=== PATIENT | male | born 1965 | race Caucasian/White ===

== ENCOUNTER 2018-01-25 20:38 | Emergency (ER) | payer BC, OTHER ==
--- OUTSIDE RECORDS SUMMARY | 2018-01-25 20:40 | XMS REPORT | Clinical Summary ---
:1965 Author Organization [facility] Address [address] [place] [address] Care Team Providers Name Role Phone Asked, No Pcp Primary Care Provider Unavailable Allergies Active Allergy Reactions Severity Noted Date Comments Gabapentin Other (See Comments) 07/13/2016 Current Medications Prescription Sig. Disp. Refills Start End Date Status Date warfarin (COUMADIN) 3 MG 3mg po daily 10 tablet 1 Active tablet at 1700 hrs 7 warfarin (COUMADIN) 3 MG 11/2 tab 120 tablet 3 Active tablet three times 7 a week (4.5 mg); one tab four days a week. warfarin (COUMADIN) 2 MG Take 1 180 tablet 3 Active tabletIndications: S/P tablet (2 mg 7 AVR (aortic valve total) by replacement) mouth daily. warfarin (COUMADIN) 5 MG One and one 200 tablet 3 Active tablet half tab one 8 day a week, one tab daily x 6 days DUREZOL 0.05 % drops 0 Active 8 hydroCHLOROthiazide Take 1 90 capsule 3 08/22/19 Active (MICROZIDE) 12.5 mg capsule 8 19 capsule (12.5 mg total) by mouth daily. metoprolol succinate XL Take 1 90 tablet 3 Active (TOPROL-XL) 50 mg 24 hr tablet (50 8 tablet mg total) by mouth daily. metoprolol succinate XL Take 1 90 tablet 3 09/20/19 Discontinued (TOPROL-XL) 50 mg 24 hr tablet (50 7 18 tablet mg total) by mouth daily. 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 following procedure 08/01/2016 Aortic valve replaced 07/19/2016 H/O aortic valve replacement 07/19/2016 Abscess 07/13/2016 Encounters Date Type Specialty Care Team Description 01/08/2018 Telephone Cardiology Pradhan, Zulma, Anticoagulation SPECIAL EDUCATION SCIENCE TEACHER 12/12/2017 Telephone Cardiology Pradhan, Zulma, Anticoagulation SPECIAL EDUCATION SCIENCE TEACHER 10/31/2017 Telephone Cardiology Pradhan, Zulma, Anticoagulation SPECIAL EDUCATION SCIENCE TEACHER 09/19/2017 Orders Only Cardiology Rodriguez Alvarez MA 09/19/2017 Refill Cardiology Janelle Lawrence MA Med Refill 08/24/2017 Telephone Cardiology Pradhan, Zulma, Anticoagulation SPECIAL EDUCATION SCIENCE TEACHER 08/21/2017 Office Visit Cardiology Dimas Fox MD Aortic valve disorder (Primary Dx); Mechanical heart valve present; H/O aortic valve replacement 08/10/2017 Telephone Cardiology Pradhan, Zulma, Anticoagulation SPECIAL EDUCATION SCIENCE TEACHER 07/17/2017 Orders Only Cardiology Pradhan, Zulma, SPECIAL EDUCATION SCIENCE TEACHER 07/12/2017 Telephone Cardiology Pradhan, Zulma, Anticoagulation SPECIAL EDUCATION SCIENCE TEACHER 05/28/2017 Telephone Cardiology Pradhan, Zulma, Anticoagulation SPECIAL EDUCATION SCIENCE TEACHER 05/24/2017 Telephone Cardiology Pradhan, Zulma, Anticoagulation SPECIAL EDUCATION SCIENCE TEACHER 05/09/2017 Telephone Cardiology Pradhan, Zulma, Anticoagulation SPECIAL EDUCATION SCIENCE TEACHER 04/23/2017 Telephone Cardiology Hanane Hollingsworth MA Anticoagulation 04/10/2017 Telephone Cardiology Pradhan, Zulma, Anticoagulation SPECIAL EDUCATION SCIENCE TEACHER 04/03/2017 Telephone Cardiology Rachael Ambrosio MA ANTICOAGULATION 03/26/2017 Telephone Cardiology Pradhan, Zulma, Anticoagulation SPECIAL EDUCATION SCIENCE TEACHER 03/20/2017 Telephone Cardiology Pradhan, Zulma, Anticoagulation SPECIAL EDUCATION SCIENCE TEACHER 03/20/2017 Telephone Cardiology Pradhan, Zulma, Anticoagulation SPECIAL EDUCATION SCIENCE TEACHER 03/15/2017 Documentation Cardiology Pradhan, Zulma, inr draw SPECIAL EDUCATION SCIENCE TEACHER 02/20/2017 Office Visit Cardiology Dimas Fox MD Mechanical heart valve present (Primary Dx); Aortic valve endocarditis 02/09/2017 Telephone Cardiology Pradhan, Zulma, Anticoagulation SPECIAL EDUCATION SCIENCE TEACHER 01/30/2017 Telephone Cardiology Pradhan, Zulma, Anticoagulation SPECIAL EDUCATION SCIENCE TEACHER after 01/24/2017 Family History Medical History Relation Name Comments Heart failure Father Hypertension Father Relation Name Status Comments Father Alive Mother Alive Social History Tobacco Use Types Packs/Day Years Used Date Never Smoker Smokeless Tobacco: Never Used Alcohol Use Drinks/Week oz/Week Comments Yes socially Sex Assigned at Date Recorded Not on file Last Filed Vital Signs Vital Sign Reading Time Taken Blood Pressure 160/88 08/21/2017 9:11 AM CDT Pulse 72 08/21/2017 9:11 AM CDT Temperature - - Respiratory Rate - - Oxygen Saturation - - Inhaled Oxygen Concentration - - Weight 119 kg (262 lb) 08/21/2017 9:11 AM CDT Height 182.9 cm (6') 08/21/2017 9:11 AM CDT Body Mass Index 35.53 08/21/2017 9:11 AM CDT Plan of Treatment Date Type Specialty Care Team Description 02/19/2018 Appointment Procedural Cardiology Dimas Fox MD [address] [place] [address] [phone] 02/19/2018 Office Visit Cardiology Dimas Fox MD [address] [place] [address] [phone] Health Maintenance Due Date Last Done Comments COLON CANCER SCREENING 09/22/2013 SHINGRIX VACCINE (#1) 09/22/2013 INFLUENZA VACCINE 12/05/2017 Implants Implanted Type Area Dairy Quality Assurance Officer Device Expiration Model / Identifier Date Serial / Lot Tgh [place] Vasclr Ptfe 1.2x10cm 1.65mm - [id number] Vascular N/A: N/A BARD PERIPHERAL 04/03/2021 [id number] / Implanted: Qty: 1 on 07/14/2016 by Guru Bueno MD Graft VASCULAR / [id number] Procedures Procedure Name Priority Date/Time Associated Comments Diagnosis TRANSFUSE FRESH STAT 01/09/2018 5:31 FROZEN PLASMA PM CDT TRANSFUSE FRESH STAT 01/09/2018 5:31 FROZEN PLASMA PM CDT PROTHROMBIN TIME WITH Routine 01/08/2018 12:00 Results for this INR AM CDT procedure are in the results section. PROTHROMBIN TIME WITH Routine 12/12/2017 12:00 Results for this INR AM CDT procedure are in the results section. PROTHROMBIN TIME WITH Routine 10/31/2017 12:00 Results for this INR AM CDT procedure are in the results section. PROTHROMBIN TIME WITH Routine 08/24/2017 12:00 Results for this INR AM CDT procedure are in the results section. PROTHROMBIN TIME WITH Routine 07/12/2017 12:00 Results for this INR AM WEB DESIGN SPECIALIST procedure are in the results section. PROTHROMBIN TIME WITH Routine 05/23/2017 12:00 Results for this INR AM WEB DESIGN SPECIALIST procedure are in the results section. PROTHROMBIN TIME WITH Routine 05/23/2017 12:00 Results for this INR AM WEB DESIGN SPECIALIST procedure are in the results section. PROTHROMBIN TIME WITH Routine 05/09/2017 12:00 Results for this INR AM WEB DESIGN SPECIALIST procedure are in the results section. PROTHROMBIN TIME WITH Routine 04/23/2017 12:00 Results for this INR AM WEB DESIGN SPECIALIST procedure are in the results section. PROTHROMBIN TIME WITH Routine 04/09/2017 12:00 Results for this INR AM WEB DESIGN SPECIALIST procedure are in the results section. PROTHROMBIN TIME WITH Routine 04/02/2017 12:00 Results for this INR AM WEB DESIGN SPECIALIST procedure are in the results section. PROTHROMBIN TIME WITH Routine 03/26/2017 12:00 Results for this INR AM WEB DESIGN SPECIALIST procedure are in the results section. PROTHROMBIN TIME WITH Routine 03/20/2017 12:00 Results for this INR AM WEB DESIGN SPECIALIST procedure are in the results section. PROTHROMBIN TIME WITH Routine 02/09/2017 12:00 Results for this INR AM CDT procedure are in the results section. after 01/24/2017 Results Transfuse fresh frozen plasma (01/09/2018 5:31 PM)Only the most recent of2 resultswithin the time period is included.Prothrombin time with INR (01/08/2018) Only the most recent of14 resultswithin the time period is included. INR 3.09 [facility] Specimen Blood Performing Organization Address City/State/Zipcode Phone Number [facility] after 01/24/2017 Insurance Payer Benefit Plan / Group Subscriber ID Type Phone Address BCBS BCBS CHOICE PPO/FEDERAL EMPL PPO xxxxxxxxxxxx PPO MEDICARE MEDICARE PART A AND B xxxxxxxxxx Medicare [place], [place] Home: [address] [place], [place] [phone] [address]
[2018-01-25 21:33] LABS: Absolute Lymphocytes (CBC) 1.6 K/uL (0.7-4.9); Absolute Monocytes 1.1 K/uL (0.1-1.3); Absolute Neutrophil 7.8 K/uL (1.8-8.0); Basophils % 0.5 % (0-1.3); Eosinophils % 1.7 % (0-4.4); Hematocrit 45.4 % (39.6-49.0); MCH 27.9 pg (27.0-35.0); MCV 83.9 fL (80-100); MPV 9.1 fL (7.6-11.3); Monocytes % 10.5 % (3.3-12.3); RBC Red Blood Cell Count 5.41 M/uL (4.33-5.43)
[2018-01-25] MEDS ORDERED: MORPHINE 4 MG/ML SYR ONE (21:34)
[2018-01-25] MEDS ORDERED: ONDANSETRON 4 MG/2 ML VIAL ONE (21:34)
[2018-01-25 21:47] LABS: Protime INR 3.64
[2018-01-25 21:54] LABS: Albumin 3.4 g/dL (3.4-5.0); Bilirubin Direct 0.2 mg/dL (0-0.2); Bilirubin Total 0.8 mg/dL (0.2-1.0); Potassium 3.9 mmol/L (3.5-5.1); Protein, Total 7.1 g/dL (6.4-8.2); Troponin I < 0.02 ng/mL (0.0-0.045)
[2018-01-26 00:19] LABS: Urine Blood TRACE (NEG); Urine Glucose TRACE (NEG); Urine Protein NEGATIVE (NEG); Urine pH 6.5 (5.0-7.0)
[2018-01-26] MEDS ORDERED: CIPROFLOXACIN 400mg IV 0 MG/0 ML BAG IV ONE (01:19)
[2018-01-26] MEDS ORDERED: METRONIDAZOLE 500mg IVPB 500 MG/100 ML BAG IV ONE (01:19)
--- NOTE | 2018-01-26 01:20 | ER ---
Nurse's Notes [facility] Name: Luisito Mccoy Age: 52 yrs Sex: Male : 1965 Arrival Date: 01/25/2018 Time: 20:40 Bed 28 Private MD: Delphine Lynn H Diagnosis: Diverticulitis of large intestine without perforation or abscess without bleeding-Sigmoid Presentation: 01/25 20:42 Presenting complaint: Patient states: Lower abdominal pain for the past 2 days. Reports aj1 that he has a history of diverticulitis, but the pain has never been this bad before. States that he has been taking some spare antibiotics. Reports N/V/D. Reports subjective fever. States that today he has started to have some chest pain and headache as well. Transition of care: patient was not received from another setting of care. Onset of symptoms was January 23, 2018. Risk Assessment: Do you want to hurt yourself or someone else? Patient reports no desire to harm self or others. Initial Sepsis Screen: Does the patient meet any 2 criteria? No. Patient's initial sepsis screen is negative. Does the patient have a suspected source of infection? Yes: Acute abdominal pain. Care prior to arrival: None. 20:42 Method Of Arrival: Ambulatory aj1 20:42 Acuity: SHARIFA 3 aj1 Triage Assessment: 20:47 General: Appears in no apparent distress. uncomfortable, Behavior is calm, cooperative, aj1 appropriate for age. Pain: Complains of pain in chest, right lower quadrant and left lower quadrant Pain currently is 8 out of 10 on a pain scale. at worst was 10 out of 10 on a pain scale. Neuro: Level of Consciousness is awake, alert, obeys commands. Cardiovascular: Patient's skin is warm and dry. Respiratory: Airway is patent Respiratory effort is even, unlabored, Respiratory pattern is regular, symmetrical. GI: Reports lower abdominal pain, diarrhea, nausea, vomiting. Historical: - Allergies: 20:47 GABAPENTIN; aj1 - Home Meds: 20:47 Toprol XL Oral [Active]; warfarin 5 mg Oral tab 1 tab once daily [Active]; aj1 - PMHx: 20:47 Hypertension; mechanical heart valve; Diverticulitis; aj1 - PSHx: 20:47 cataract surgery; aj1 - Immunization history:: Flu vaccine is not up to date. - Social history:: Smoking status: Patient/guardian denies using tobacco. - Ebola Screening: : Patient denies travel to an Ebola-affected area in the 21 days before illness onset. Screenin:36 Abuse screen: Denies threats or abuse. Denies injuries from another. Nutritional mg2 screening: No deficits noted. Tuberculosis screening: No symptoms or risk factors identified. Fall Risk IV access (20 points). Assessment: 21:33 General: Appears in no apparent distress. uncomfortable, Behavior is calm, cooperative. mg2 Pain: Complains of pain in left lower quadrant and right lower quadrant Pain radiates to chest Pain currently is 10 out of 10 on a pain scale. Quality of pain is described as aching, Pain began gradually, Is intermittent. Neuro: Level of Consciousness is awake, alert, obeys commands, Oriented to person, place, time, situation. Cardiovascular: Capillary refill < 3 seconds Patient's skin is warm and dry. Respiratory: Airway is patent Respiratory effort is even, unlabored, Respiratory pattern is regular, symmetrical. GI: Abdomen is round non-distended, :. EENT: No signs and/or symptoms were reported regarding the EENT system. Derm: Skin is intact, Skin is pink, warm \T\ dry. normal. Musculoskeletal: Circulation, motion, and sensation intact. 22:00 GI: Abd is soft and non tender X 4 quads. mg2 22:30 Reassessment: Patient appears in no apparent distress at this time. Patient and/or mg2 family updated on plan of care and expected duration. Pain level reassessed. Patient is alert, oriented x 3, equal unlabored respirations, skin warm/dry/pink. 01/26 00:30 Reassessment: Patient appears in no apparent distress at this time. Patient and/or mg2 family updated on plan of care and expected duration. Pain level reassessed. Patient is alert, oriented x 3, equal unlabored respirations, skin warm/dry/pink. 01:30 Reassessment: Patient appears in no apparent distress at this time. Patient and/or mg2 family updated on plan of care and expected duration. Pain level reassessed. Patient is alert, oriented x 3, equal unlabored respirations, skin warm/dry/pink. Vital Signs: 01/25 20:47 BP 130 / 79; Pulse 81; Resp 18; Temp 99.0(TE); Pulse Ox 99% on R/A; Weight 117.93 kg aj1 (R); Height 6 ft. 0 in. (182.88 cm) (R); Pain 8/10; 21:23 BP 153 / 83 LA Supine (auto/lg); Pulse 78; Resp 20; Pulse Ox 99% on R/A; Pain 10/10; jp3 22:41 BP 126 / 67; Pulse 75; Resp 18; Pulse Ox 100% on R/A; mg2 23:41 BP 125 / 75; Pulse 76; Resp 18; Pulse Ox 100% on R/A; mg2 01/26 01:00 BP 124 / 61; Pulse 77; Resp 18; Pulse Ox 100% on R/A; mg2 02:07 BP 126 / 75; Pulse 80; Resp 18; Pulse Ox 100% on R/A; mg2 01/25 20:47 Body Mass Index 35.26 (117.93 kg, 182.88 cm) aj1 ED Course: 01/25 20:40 Patient arrived in ED. es 20:41 Delphine Lynn DO is Private Physician. es 20:46 Triage completed. aj1 20:47 Arm band placed on Patient placed in an exam room. aj1 20:49 Tevin Prince PA is PHCP. cp 20:49 Phong Moore MD is Attending Physician. cp 21:01 Ant Fair, FERNANDO is Primary Nurse. mg2 21:15 Bed in low position. Call light in reach. Side rails up X 1. Side rails up X2. jp3 21:29 Warm blanket given. Pulse ox on. NIBP on. jp3 21:36 No provider procedures requiring assistance completed. Inserted saline lock: 20 gauge mg2 in right antecubital area, using aseptic technique. Blood collected. 23:[address] via wheelchair. kw1 01/26 00:10 CT Abd/Pelvis - W/Contrast In Process Unspecified. EDMS 00:12 CT completed. Patient tolerated procedure well. Patient moved back from CT. kw1 01:18 Delphine Lynn DO is Referral Physician. cp 01:50 IV discontinued, intact, bleeding controlled, No redness/swelling at site. Pressure mg2 dressing applied. Administered Medications: 01/25 21:33 Drug: morphine 4 mg Route: IVP; Site: right antecubital; mg2 22:30 Follow up: Response: No adverse reaction; Marked relief of symptoms mg2 21:33 Drug: Zofran 4 mg Route: IVP; Site: right antecubital; mg2 23:21 Follow up: Response: No adverse reaction; Marked relief of symptoms mg2 01/26 01:14 Not Given (Physician Discretion): Cipro 400 mg 200 ml IVPB once over 60 mins cp 01:18 Drug: metroNIDAZOLE 500 mg Volume: 100 ml; Route: IVPB; Infused Over: 30 mins; Site: mg2 right antecubital; 01:50 Follow up: Response: No adverse reaction; IV Status: Completed infusion mg2 01:26 Drug: Cipro 500 mg Route: PO; mg2 01:49 Follow up: Response: No adverse reaction mg2 01:27 Drug: [place] 10 mg-325 mg 1 tabs Route: PO; mg2 01:49 Follow up: Response: No adverse reaction; Marked relief of symptoms mg2 Outcome: 01:20 Discharge ordered by MD. cp 02:08 Discharged to home ambulatory, with family. mg2 02:08 Condition: stable 02:08 Discharge instructions given to patient, family, Instructed on discharge instructions, follow up and referral plans. medication usage, Demonstrated understanding of instructions, follow-up care, medications, Prescriptions given X 4. 02:09 Patient left the ED. mg2 Signatures: Dispatcher [employer] Aruna Patino RN RN aj1 Winifred Mike Corey, PA PA cp Susan Braden kw1 Ant Fair RN RN mg2 Rikki Cerrato jp3 Corrections: (The following items were deleted from the chart) 01/25 21:30 21:29 Bed in low position. Call light in reach. Side rails up X 1. Side rails up X2. [id number]
--- NOTE | 2018-01-26 01:20 | EDPHYS ---
Physician Documentation [facility] Name: Luisito Mccoy Age: 52 yrs Sex: Male : 1965 Arrival Date: 01/25/2018 Time: 20:40 Bed 28 Private MD: Delphine Lynn H ED Physician Phong Moore HPI: 01/25 21:20 This 52 yrs old Male presents to ER via Ambulatory with complaints of cp Abdominal Pain. 21:20 The patient presents with abdominal pain in the lower abdomen, abdominal distention cp that is diffuse. Onset: The symptoms/episode began/occurred 2 day(s) ago. The symptoms do not radiate. Associated signs and symptoms: Pertinent positives: chest pain, fever, Pertinent negatives: blood in stools, constipation, testicular pain, vomiting. Historical: - Allergies: 20:47 GABAPENTIN; aj1 - Home Meds: 20:47 Toprol XL Oral [Active]; warfarin 5 mg Oral tab 1 tab once daily [Active]; aj1 - PMHx: 20:47 Hypertension; mechanical heart valve; Diverticulitis; aj1 - PSHx: 20:47 cataract surgery; aj1 - Immunization history:: Flu vaccine is not up to date. - Social history:: Smoking status: Patient/guardian denies using tobacco. - Ebola Screening: : Patient denies travel to an Ebola-affected area in the 21 days before illness onset. ROS: 21:25 Constitutional: Negative for body aches, chills, fever, poor PO intake. cp 21:25 Eyes: Negative for injury, pain, redness, and discharge. cp 21:25 ENT: Negative for drainage from ear(s), ear pain, sore throat, difficulty swallowing, difficulty handling secretions. 21:25 Cardiovascular: Negative for chest pain, edema, palpitations. 21:25 Respiratory: Negative for cough, dyspnea on exertion, shortness of breath, wheezing. 21:25 Abdomen/GI: Positive for abdominal pain, nausea, Negative for vomiting, diarrhea, constipation, black/tarry stool, rectal bleeding. 21:25 Back: Negative for radiated pain. 21:25 Skin: Negative for cellulitis, rash. 21:25 Neuro: Negative for altered mental status, headache, weakness. 21:25 All other systems are negative. Exam: 21:30 Constitutional: The patient appears in no acute distress, alert, awake, cp non-diaphoretic, non-toxic, well developed, well nourished, uncomfortable. 21:30 Head/Face: Normocephalic, atraumatic. cp 21:30 Eyes: Periorbital structures: appear normal, Conjunctiva: normal, no exudate, no injection, Sclera: no appreciated abnormality, Lids and lashes: appear normal, bilaterally. 21:30 ENT: External ear(s): are unremarkable, Nose: is normal, Mouth: Lips: moist, Oral mucosa: pink and intact, moist, Posterior pharynx: is normal, airway is patent, no erythema, no exudate. 21:30 Chest/axilla: Inspection: normal, Palpation: is normal, no crepitus, no tenderness. 21:30 Cardiovascular: Rate: normal, Rhythm: regular, Edema: is not appreciated, JVD: is not appreciated. 21:30 Respiratory: the patient does not display signs of respiratory distress, Respirations: normal, no use of accessory muscles, no retractions, no splinting, no tachypnea, labored breathing, is not present, Breath sounds: are clear throughout, no decreased breath sounds, no stridor, no wheezing. 21:30 Abdomen/GI: Inspection: distension, that is mild, Bowel sounds: active, all quadrants, Palpation: soft, in all quadrants, moderate abdominal tenderness, in the right lower quadrant and left lower quadrant, rebound tenderness, is not appreciated, voluntary guarding, is elicited in the right lower quadrant and left lower quadrant. 21:30 Back: pain, is absent, ROM is normal. 21:30 Skin: cellulitis, is not appreciated, no rash present. 21:55 ECG was reviewed by the Attending Physician. cp Vital Signs: 20:47 BP 130 / 79; Pulse 81; Resp 18; Temp 99.0(TE); Pulse Ox 99% on R/A; Weight 117.93 kg aj1 (R); Height 6 ft. 0 in. (182.88 cm) (R); Pain 8/10; 21:23 BP 153 / 83 LA Supine (auto/lg); Pulse 78; Resp 20; Pulse Ox 99% on R/A; Pain 10/10; jp3 22:41 BP 126 / 67; Pulse 75; Resp 18; Pulse Ox 100% on R/A; mg2 23:41 BP 125 / 75; Pulse 76; Resp 18; Pulse Ox 100% on R/A; mg2 01/26 01:00 BP 124 / 61; Pulse 77; Resp 18; Pulse Ox 100% on R/A; mg2 02:07 BP 126 / 75; Pulse 80; Resp 18; Pulse Ox 100% on R/A; mg2 01/25 20:47 Body Mass Index 35.26 (117.93 kg, 182.88 cm) aj1 MDM: 01/25 20:49 Patient medically screened. cp 01/26 00:00 Differential diagnosis: cholecystitis, Cholelithiasis, diverticulitis, pancreatitis, cp Ureterolithiasis, urinary tract infection. 01:15 Data reviewed: vital signs, nurses notes, lab test result(s), radiologic studies, CT cp scan. 01:15 Counseling: I had a detailed discussion with the patient and/or guardian regarding: the cp historical points, exam findings, and any diagnostic results supporting the discharge/admit diagnosis, lab results, radiology results, to return to the emergency department if symptoms worsen or persist or if there are any questions or concerns that arise at home. Response to treatment: the patient's symptoms have markedly improved after treatment, VSS. Pain and nausea improved. Patient requesting to try outpatient treatment with oral antibiotics. Recommend clear liquid diet and f/u with PCP Sunday. 01/25 21:12 Order name: Basic Metabolic Panel; Complete Time: 22:16 cp 01/26 00:37 Interpretation: Normal except: NA 134; GLUC 158; GFR 63. cp 01/25 21:12 Order name: CBC with Diff; Complete Time: 22:16 cp 01/25 21:12 Order name: Creatinine for Radiology; Complete Time: 22:16 cp 01/25 21:12 Order name: Hepatic Function; Complete Time: 22:16 cp 01/25 21:12 Order name: Lipase; Complete Time: 22:16 cp 01/25 21:18 Order name: PT-INR; Complete Time: 22:16 cp 01/25 21:18 Order name: Ptt, Activated; Complete Time: 22:16 cp 01/25 21:18 Order name: Magnesium; Complete Time: 22:16 cp 01/25 21:18 Order name: CT Abd/Pelvis - W/Contrast cp 01/25 21:18 Order name: Troponin I; Complete Time: 22:16 cp 01/25 23:49 Order name: Urine Dipstick--Ancillary (enter results); Complete Time: 00:37 rg2 01/26 00:37 Interpretation: Normal except: UBLD TRACE. cp 01/25 21:12 Order name: IV Saline Lock; Complete Time: 21:27 cp 01/25 21:12 Order name: Labs collected and sent; Complete Time: 21:27 cp 01/25 21:18 Order name: EKG; Complete Time: 21:18 cp 01/25 21:18 Order name: EKG - Nurse/Tech; Complete Time: 21:52 cp 01/26 01:10 Order name: NPO; Complete Time: 01:50 cp EC/21 21:55 Rate is 73 beats/min. Rhythm is regular. [place] interval is normal. QRS interval is normal. cp QT interval is normal. T waves are Inverted in lead III. Interpreted by me. Reviewed by me. Administered Medications: 21:33 Drug: morphine 4 mg Route: IVP; Site: right antecubital; mg2 22:30 Follow up: Response: No adverse reaction; Marked relief of symptoms mg2 21:33 Drug: Zofran 4 mg Route: IVP; Site: right antecubital; mg2 23:21 Follow up: Response: No adverse reaction; Marked relief of symptoms mg2 01/26 01:14 Not Given (Physician Discretion): Cipro 400 mg 200 ml IVPB once over 60 mins cp 01:18 Drug: metroNIDAZOLE 500 mg Volume: 100 ml; Route: IVPB; Infused Over: 30 mins; Site: mg2 right antecubital; 01:50 Follow up: Response: No adverse reaction; IV Status: Completed infusion mg2 01:26 Drug: Cipro 500 mg Route: PO; mg2 01:49 Follow up: Response: No adverse reaction mg2 01:27 Drug: [place] 10 mg-325 mg 1 tabs Route: PO; mg2 01:49 Follow up: Response: No adverse reaction; Marked relief of symptoms mg2 Disposition: 01/26/18 01:20 Discharged to Home. Impression: Diverticulitis of large intestine without perforation or abscess without bleeding - Sigmoid. - Condition is Stable. - Discharge Instructions: Diverticulitis. - Prescriptions for Bentyl 20 mg Oral Tablet - take 2 tablets by ORAL route every 6 hours As needed; 30 tablet. Zofran 4 mg Oral Tablet - take 1 tablet by ORAL route every 12 hours As needed; 20 tablet. Cipro 500 mg Oral Tablet - take 1 tablet by ORAL route every 12 hours for 10 days; 20 tablet. Metronidazole 500 mg Oral Tablet - take 1 tablet by ORAL route every 8 hours; 30 tablet. - Medication Reconciliation Form, Thank You Letter, Antibiotic Education, Prescription Opioid Use form. - Follow up: Delphine Lynn DO; When: 01/28/2018; Reason: Recheck today's complaints. - Problem is new. - Symptoms have improved. Signatures: Dispatcher [employer] EDMS Aruna Aiken RN RN aj1 Tevin Prince PA PA cp Ant Fair RN RN mg2 Corrections: (The following items were deleted from the chart) 02:09 01:20 01/26/2018 01:20 Discharged to Home. Impression: Diverticulitis of large mg2 intestine without perforation or abscess without bleeding - Sigmoid. Condition is Stable. Forms are Medication Reconciliation Form, Thank You Letter, Antibiotic Education, Prescription Opioid Use. Follow up: Delphine Lynn; When: 01/28/2018; Reason: Recheck today's complaints. Problem is new. Symptoms have improved. cp
[2018-01-26] MEDS ORDERED: HYDROCODONE/APAP 10/325 TAB ONE (01:28)
[2018-01-26] MEDS ORDERED: CIPROFLOXACIN HCL 500 MG TAB ONE (01:29)
[2018-01-26 02:15] VITALS: TEMP 99
[2018-01-26 02:17] VITALS: O2SAT 100
[2018-01-26 02:21] VITALS: BP 126/75
--- NOTE | 2018-01-26 10:56 | EKG ---
Test Date: 2018-01-25 Test Time: 21:48:34 Guide Winder: IDA MEASUREMENT RESULTS: Intervals: Rate: 73 [place]: 184 QRSD: 92 QT: 374 QTc: 412 [place]: P: 46 [place]: 184 QRS: -9 T: 3 INTERPRETIVE STATEMENTS: Normal sinus rhythm Possible Left atrial enlargement Inferior infarct, age undetermined Abnormal ECG Compared to ECG 12/15/2015 20:17:40 Myocardial infarct finding now present Atrial premature complex(es) no longer present Electronically Signed On 01-26-18 10:55:26 CDT by Sage Li
--- NOTE | 2018-01-26 23:29 | RAD REPORT ---
EXAM DESCRIPTION: CT - Abdomen Pelvis W Contrast - 01/26/2018 1:14 am CLINICAL HISTORY: Abdominal pain. Lower abdominal pain with diarrhea COMPARISON: None. TECHNIQUE: Computed axial tomography of the abdomen and pelvis was obtained. 100 cc Isovue-300 is ad ministered intravenously. Oral contrast was given. Preliminary report was generated by [employer] and reviewed prior to this dictation All CT scans are performed using dose optimization technique as appropriate and may include automated exposure control or mA/KV adjustment according to patient size. FINDINGS: The liver, spleen, pancreas, adrenals and kidneys appear unremarkable. The appendix is normal caliber. The wall of the sigmoid colon is thickened. Diverticula are noted. Moderate stranding is present within the adjacent fat. An abscess is not seen. Free air is not noted. Small bilateral inguinal hernias contain fat IMPRESSION: Moderate sigmoid diverticulitis
== END 2018-01-26 02:09 | disposition home or self-care (01) ==
LOC: ER 20:38
DX: K57.32 Diverticulitis of large intestine without perforation or abscess without bleeding (principal); I10 Essential (primary) hypertension; Z88.6 Allergy status to analgesic agent
CPT/HCPCS: 36415; 74177; 80048; 80076; 81003; 83690; 83735; 84484; 85025; 85610; 85730; 93005; 96365; 96375; 99284; J0744; J2405; Q9967

== ENCOUNTER 2019-03-11 16:43 | Emergency (ER) | payer OTHER ==
[2019-03-11 18:29] LABS: Absolute Lymphocytes (CBC) 2.4 K/uL (0.7-4.9); Basophils % 0.5 % (0-1.3); Hematocrit 42.4 % (39.6-49.0); Lymphocytes % 28.2 % (15.3-44.8); MPV 9.8 fL (7.6-11.3); RBC Red Blood Cell Count 5.19 M/uL (4.33-5.43)
[2019-03-11 18:30] LABS: Protime INR 2.6
[2019-03-11 18:47] LABS: ALT/SGPT 44 U/L (12-78); AST/SGOT 36 U/L (15-37); Albumin 4.1 g/dL (3.4-5.0); Alkaline Phosphatase 71 U/L (45-117); BUN Blood Urea Nitrogen 11 mg/dL (7-18); Bicarbonate 27 mmol/L (21-32); Bilirubin Direct 0.2 mg/dL (0-0.2); Bilirubin Total 0.5 mg/dL (0.2-1.0); Glucose Level 89 mg/dL (74-106); Magnesium 2.1 mg/dL (1.8-2.4); NT PRO-BNP 99 pg/mL (<125); Potassium 3.8 mmol/L (3.5-5.1); Protein, Total 7.8 g/dL (6.4-8.2); Sodium Level 141 mmol/L (136-145); Troponin (Emerg Dept Use Only) < 0.02 ng/mL (0.0-0.045)
--- NOTE | 2019-03-11 19:00 | RAD REPORT ---
EXAM DESCRIPTION: RAD - Chest Pa And Lat (2 Views) - 03/11/2019 5:47 pm CLINICAL HISTORY: CHEST PAIN, left arm and left shoulder pain COMPARISON: December 2015 TECHNIQUE: PA and lateral views of the chest were obtained. FINDINGS: The lungs are clear. Interstitial pattern is similar to comparison. Aortic valve surgical changes are noted. Heart size is normal and central vasculature is within normal limits. No pleural effusion or pneumothorax seen. No acute bony finding noted. No aortic abnormality. IMPRESSION: No acute cardiopulmonary process. Chest is not significantly different comparison.
--- NOTE | 2019-03-11 21:00 | EDPHYS ---
Physician Documentation [facility] Name: Luisito Mccoy Age: 53 yrs Sex: Male : 1965 Arrival Date: 03/11/2019 Time: 16:45 Bed 25 Private MD: ED Physician Han Carney HPI: 03/11 18:25 This 53 yrs old Male presents to ER via Ambulatory with complaints of Chest kdr Pain. 18:25 The patient or guardian reports chest pain that is located primarily in the anterior kdr chest wall, left, chest diffusely, The patient has recurrent left chest pain that radiate into his shoulder. He has had this intermittently and has been previously evaluated but yesterday and today it was worse than normal in terms of severity. At present, he has no chest pain.. Onset: yesterday. The pain radiates to the left arm, the right shoulder. 18:52 Associated signs and symptoms: The patient has no apparent associated signs or kdr symptoms, Pertinent negatives: diaphoresis, headache, lightheadedness, nausea, shortness of breath. The chest pain is described as burning, crushing, sharp, stabbing. Duration: The patient or guardian reports multiple episodes, that are intermittent, that wax and wane, with no pattern. Modifying factors: The symptoms are alleviated by nothing. the symptoms are aggravated by nothing. Severity of pain: At its worst the pain was severe incapacitating today, in the emergency department the pain has resolved. The patient has experienced similar episodes in the past, multiple times, but today's symptoms are worse, more painful. Historical: - Allergies: 16:48 GABAPENTIN; hb - Home Meds: 16:48 warfarin 5 mg Oral tab 1 tab once daily [Active]; Ambien Oral [Active]; Toprol XL Oral hb [Active]; - PMHx: 16:48 Diverticulitis; Hypertension; mechanical heart valve; hb - PSHx: 16:48 cataract surgery; hb - Immunization history:: Adult Immunizations up to date. - Social history:: Smoking status: Patient/guardian denies using tobacco. - Ebola Screening: : No symptoms or risks identified at this time. ROS: 18:52 Constitutional: Negative for fever, chills, and weight loss, Eyes: Negative for injury, kdr pain, redness, and discharge, Neck: Negative for injury, pain, and swelling, Respiratory: Negative for shortness of breath, cough, wheezing, and pleuritic chest pain, Abdomen/GI: Negative for abdominal pain, nausea, vomiting, diarrhea, and constipation, Back: Negative for injury and pain, : Negative for injury, bleeding, discharge, and swelling, MS/Extremity: Negative for injury and deformity, Skin: Negative for injury, rash, and discoloration, Neuro: Negative for headache, weakness, numbness, tingling, and seizure activity. Psych: Negative for depression, anxiety, suicide ideation, homicidal ideation, and hallucinations, Allergy/Immunology: Negative for hives, rash, and allergies, Endocrine: Negative for neck swelling, polydipsia, polyuria, polyphagia, and marked weight changes, Hematologic/Lymphatic: Negative for swollen nodes, abnormal bleeding, and unusual bruising. 18:52 Cardiovascular: Positive for chest pain, of the left supraclavicular area, left clavicle, anterior aspect of left upper chest, left lateral anterior chest and left breast. Exam: 18:52 Constitutional: This is a well developed, well nourished patient who is awake, alert, kdr and in no acute distress. Head/Face: Normocephalic, atraumatic. Eyes: Pupils equal round and reactive to light, extra-ocular motions intact. Lids and lashes normal. Conjunctiva and sclera are non-icteric and not injected. Cornea within normal limits. Periorbital areas with no swelling, redness, or edema. Neck: Trachea midline, no thyromegaly or masses palpated, and no cervical lymphadenopathy. Supple, full range of motion without nuchal rigidity, or vertebral point tenderness. No Meningismus. Chest/axilla: Normal chest wall appearance and motion. Nontender with no deformity. No lesions are appreciated. Cardiovascular: Regular rate and rhythm with a normal S1 and S2. No gallops, murmurs, or rubs. Normal PMI, no JVD. No pulse deficits. Respiratory: Lungs have equal breath sounds bilaterally, clear to auscultation and percussion. No rales, rhonchi or wheezes noted. No increased work of breathing, no retractions or nasal flaring. Abdomen/GI: Soft, non-tender, with normal bowel sounds. No distension or tympany. No guarding or rebound. No evidence of tenderness throughout. Back: No spinal tenderness. No costovertebral tenderness. Full range of motion. Skin: Warm, dry with normal turgor. Normal color with no rashes, no lesions, and no evidence of cellulitis. MS/ Extremity: Pulses equal, no cyanosis. Neurovascular intact. Full, normal range of motion. Neuro: Awake and alert, GCS 15, oriented to person, place, time, and situation. Cranial nerves II-XII grossly intact. Motor strength 5/5 in all extremities. Sensory grossly intact. Cerebellar exam normal. Normal gait. Psych: Awake, alert, with orientation to person, place and time. Behavior, mood, and affect are within normal limits. Vital Signs: 16:48 BP 186 / 86; Pulse 68; Resp 16; Temp 97.4; Pulse Ox 97% on R/A; Weight 108.86 kg; hb Height 6 ft. (182.88 cm); Pain 6/10; 18:24 BP 136 / 76; Pulse 55; Resp 18; Pulse Ox 99% on R/A; mg2 19:25 BP 129 / 87; Pulse 56; Resp 18; Pulse Ox 97% on R/A; mg2 20:51 Pulse 63; Resp 18; Pulse Ox 98% on R/A; mg2 16:48 Body Mass Index 32.55 (108.86 kg, 182.88 cm) hb MDM: 17:37 Patient medically screened. snw 21:02 Data reviewed: vital signs, nurses notes, lab test result(s), EKG. Data interpreted: snw Pulse oximetry: on room air is 98 %. Interpretation: normal. Counseling: I had a detailed discussion with the patient and/or guardian regarding: the historical points, exam findings, and any diagnostic results supporting the discharge/admit diagnosis, the presence of at least one elevated blood pressure reading (>120/80) during this emergency department visit, lab results, radiology results, the need for outpatient follow up, to return to the emergency department if symptoms worsen or persist or if there are any questions or concerns that arise at home. Special discussion: Based on the history and exam findings, there is no indication for further emergent testing or inpatient evaluation. I discussed with the patient/guardian the need to see the real estate salesperson for further evaluation of the symptoms. 03/11 17:46 Order name: Basic Metabolic Panel; Complete Time: 18:49 snw 03/11 17:46 Order name: CBC with Diff; Complete Time: 18:49 snw 03/11 17:46 Order name: LFT's; Complete Time: 18:49 snw 03/11 17:46 Order name: Magnesium; Complete Time: 18:49 snw 03/11 17:46 Order name: NT PRO-BNP; Complete Time: 18:49 snw 03/11 17:46 Order name: PT-INR; Complete Time: 18:49 snw 03/11 17:01 Order name: Chest Pa And Lat (2 Views) XRAY; Complete Time: 19:09 snw 03/11 17:46 Order name: Troponin (emerg Dept Use Only); Complete Time: 18:49 snw 03/11 20:04 Order name: Troponin (emerg Dept Use Only); Complete Time: 20:55 snw 03/11 16:50 Order name: EKG; Complete Time: 16:50 hb 03/11 16:50 Order name: EKG - Nurse/Tech; Complete Time: 16:50 hb 03/11 17:46 Order name: Cardiac monitoring; Complete Time: 18:18 snw 03/11 17:46 Order name: IV Saline Lock; Complete Time: 18:19 snw 03/11 17:46 Order name: Labs collected and sent; Complete Time: 18:19 snw 03/11 17:46 Order name: O2 Per Protocol; Complete Time: 18:19 snw 03/11 17:46 Order name: O2 Sat Monitoring; Complete Time: 18:19 snw 03/11 20:04 Order name: EKG - Nurse/Tech; Complete Time: 20:32 snw Administered Medications: 17:54 CANCELLED (error): Albuterol - atroVENT (3:1) (2.5 mg - 0.5 mg) 3 ml Nebulizer once snw 17:54 CANCELLED (error): predniSONE 40 mg PO once snw 18:40 CANCELLED (Physician Discretion): Aspirin Chewable Tablet 324 mg PO once; 81 mg tablets mg2 x 4 18:40 CANCELLED (Physician Discretion): ProTONIX 40 mg PO once mg2 Disposition: 03/12 07:18 Co-signature as Attending Physician, Han Carney MD I agree with the assessment and kdr plan of care. Disposition: 03/11/19 20:59 Discharged to Home. Impression: Chest pain, unspecified. - Condition is Stable. - Discharge Instructions: Nonspecific Chest Pain, Hypertension. - Prescriptions for Pepcid 20 mg Oral Tablet - take 1 tablet by ORAL route once daily; 20 tablet. - Medication Reconciliation Form, Thank You Letter, Antibiotic Education, Prescription Opioid Use form. - Follow up: Emergency Department; When: As needed; Reason: Worsening of condition. Follow up: Private Physician; When: 2 - 3 days; Reason: Recheck today's complaints, Continuance of care, Re-evaluation by your physician. Signatures: Dispatcher [employer] [facility] Han Carney MD MD [facility] Amanda Bustos, CREATIVE ARTS THERAPIST-C CREATIVE ARTS THERAPIST-Csnw May Eric RN RN Ant Fair RN RN mg2 Corrections: (The following items were deleted from the chart) 03/11 17:54 17:47 Albuterol - atroVENT (3:1) (2.5 mg - 0.5 mg) 3 ml Nebulizer once ordered. snw snw 17:54 17:47 predniSONE 40 mg PO once ordered. snw snw 18:40 17:47 Aspirin Chewable Tablet 324 mg PO once; 81 mg tablets x 4 ordered. snw mg2 18:40 17:47 ProTONIX 40 mg PO once ordered. snw mg2 18:55 17:47 Chest Single View+RAD.RAD.BRZ ordered. [facility] 21:16 20:59 03/11/2019 20:59 Discharged to Home. Impression: Chest pain, unspecified. mg2 Condition is Stable. Forms are Medication Reconciliation Form, Thank You Letter, Antibiotic Education, Prescription Opioid Use. Follow up: Emergency Department; When: As needed; Reason: Worsening of condition. Follow up: Private Physician; When: 2 - 3 days; Reason: Recheck today's complaints, Continuance of care, Re-evaluation by your physician. snw
--- NOTE | 2019-03-11 21:00 | ER ---
Nurse's Notes [facility] Name: Luisito Mccoy Age: 53 yrs Sex: Male : 1965 Arrival Date: 03/11/2019 Time: 16:45 Bed 25 Private MD: Diagnosis: Chest pain, unspecified Presentation: 03/11 16:46 Presenting complaint: Left arm and shoulder pain x 2 days, left sided chest pain that hb radiates to left shoulder. Also reports SOB and nausea. Transition of care: patient was not received from another setting of care. Onset of symptoms was March 10, 2019. Risk Assessment: Do you want to hurt yourself or someone else? Patient reports no desire to harm self or others. Care prior to arrival: None. 16:46 Method Of Arrival: Ambulatory hb 16:46 Acuity: SHARIFA 3 hb 18:21 Initial Sepsis Screen: Does the patient meet any 2 criteria? No. Patient's initial mg2 sepsis screen is negative. Does the patient have a suspected source of infection? No. Patient's initial sepsis screen is negative. Historical: - Allergies: 16:48 GABAPENTIN; hb - Home Meds: 16:48 warfarin 5 mg Oral tab 1 tab once daily [Active]; Ambien Oral [Active]; Toprol XL Oral hb [Active]; - PMHx: 16:48 Diverticulitis; Hypertension; mechanical heart valve; hb - PSHx: 16:48 cataract surgery; hb - Immunization history:: Adult Immunizations up to date. - Social history:: Smoking status: Patient/guardian denies using tobacco. - Ebola Screening: : No symptoms or risks identified at this time. Screenin:19 Abuse screen: Denies threats or abuse. Denies injuries from another. Nutritional mg2 screening: No deficits noted. Tuberculosis screening: No symptoms or risk factors identified. Fall Risk IV access (20 points). Assessment: 18:20 General: Appears in no apparent distress. comfortable, Behavior is calm, cooperative. mg2 Pain: Complains of pain in chest Pain does not radiate. Pain currently is 2 out of 10 on a pain scale. Quality of pain is described as pressure, Pain began gradually, 1 day ago. Is intermittent. Neuro: Level of Consciousness is awake, alert, obeys commands, Oriented to person, place, time, situation. Cardiovascular: Reports chest pain, Capillary refill < 3 seconds Patient's skin is warm and dry. Respiratory: Airway is patent Respiratory effort is even, unlabored, Respiratory pattern is regular, symmetrical. GI: No signs and/or symptoms were reported involving the gastrointestinal system. : No deficits noted. EENT: No signs and/or symptoms were reported regarding the EENT system. Derm: Skin is intact, is healthy with good turgor, Skin is pink, warm \T\ dry. normal. Musculoskeletal: Circulation, motion, and sensation intact. Capillary refill < 3 seconds. 20:50 Reassessment: Patient appears in no apparent distress at this time. Patient and/or mg2 family updated on plan of care and expected duration. Pain level reassessed. Patient is alert, oriented x 3, equal unlabored respirations, skin warm/dry/pink. patient agreed to wait for the result of 2nd troponin,. Vital Signs: 16:48 BP 186 / 86; Pulse 68; Resp 16; Temp 97.4; Pulse Ox 97% on R/A; Weight 108.86 kg; hb Height 6 ft. (182.88 cm); Pain 6/10; 18:24 BP 136 / 76; Pulse 55; Resp 18; Pulse Ox 99% on R/A; mg2 19:25 BP 129 / 87; Pulse 56; Resp 18; Pulse Ox 97% on R/A; mg2 20:51 Pulse 63; Resp 18; Pulse Ox 98% on R/A; mg2 16:48 Body Mass Index 32.55 (108.86 kg, 182.88 cm) hb ED Course: 16:45 Patient arrived in ED. hb 16:47 Triage completed. hb 16:48 Arm band placed on. hb 17:12 EKG done, by evs tech. reviewed by Han Carney MD. sm3 17:27 Amanda [facility]os [facility]C [facility] snw 17:27 Han Carney MD is Attending Physician. snw 17:35 Ant Fair, FERNANDO is Primary Nurse. mg2 17:46 Chest Pa And Lat (2 Views) XRAY In Process Unspecified. EDMS 18:19 Patient has correct armband on for positive identification. compounder flavorings on. Pulse mg2 ox on. NIBP on. Door closed. Warm blanket given. 18:20 No provider procedures requiring assistance completed. Inserted saline lock: 20 gauge mg2 in right antecubital area, using aseptic technique. Blood collected. Patient maintains SpO2 saturation greater than 95% on room air. 18:49 Amanda Bustos FNP-C is PHCP. snw 21:15 IV discontinued, intact, bleeding controlled, No redness/swelling at site. Pressure mg2 dressing applied. Administered Medications: 17:54 CANCELLED (error): Albuterol - atroVENT (3:1) (2.5 mg - 0.5 mg) 3 ml Nebulizer once snw 17:54 CANCELLED (error): predniSONE 40 mg PO once snw 18:40 CANCELLED (Physician Discretion): Aspirin Chewable Tablet 324 mg PO once; 81 mg tablets mg2 x 4 18:40 CANCELLED (Physician Discretion): ProTONIX 40 mg PO once mg2 Outcome: 20:59 Discharge ordered by . snw 21:15 Discharged to home ambulatory, with family. mg2 21:15 Condition: stable 21:15 Discharge instructions given to patient, family, Instructed on discharge instructions, follow up and referral plans. medication usage, Demonstrated understanding of instructions, follow-up care, medications, Prescriptions given X 1. 21:16 Patient left the ED. mg2 Signatures: Dispatcher [employer] EDMS Amanda Bustos FNP-C PROPAGATION WORKER-Csnw May Eric RN RN Ant Fair RN RN [facility] Tawana Azevedo 3
[2019-03-12 00:48] VITALS: TEMP 97.4
[2019-03-12 00:50] VITALS: BP 129/87
[2019-03-12 00:52] VITALS: O2SAT 98
--- NOTE | 2019-03-12 06:35 | EKG ---
Test Date: 2019-03-11 Test Time: 16:49:57 Certified Pediatric Nurse Practitioner: LUIS MEASUREMENT RESULTS: Intervals: Rate: 60 MA: 202 QRSD: 84 QT: 406 QTc: 406 [place]: P: 57 MA: 202 QRS: 59 T: 39 INTERPRETIVE STATEMENTS: Normal sinus rhythm Normal ECG Compared to ECG 01/25/2018 21:48:34 Myocardial infarct finding no longer present Electronically Signed On 03-12-19 06:34:57 ASSEMBLY MACHINE TENDER by Srikanth Giraldo
--- NOTE | 2019-03-12 12:49 | EKG ---
Test Date: 2019-03-11 Test Time: 20:30:17 Seat Joiner: RV MEASUREMENT RESULTS: Intervals: Rate: 49 NM: 232 QRSD: 80 QT: 436 QTc: 393 [place]: P: 46 NM: 232 QRS: 38 T: 23 INTERPRETIVE STATEMENTS: Sinus bradycardia with 1st degree AV block Otherwise normal ECG Compared to ECG 03/11/2019 16:49:57 First degree AV block now present Sinus rhythm no longer present Electronically Signed On 03-12-19 12:48:58 TEACHER VOCATIONAL TRAINING by Srikanth Giraldo
== END 2019-03-11 21:16 | disposition home or self-care (01) ==
LOC: ER 16:43
DX: R07.9 Chest pain, unspecified (principal); I10 Essential (primary) hypertension; Z95.4 Presence of other heart-valve replacement; Z79.01 Long term (current) use of anticoagulants; Z88.8 Allergy status to other drugs, medicaments and biological substances
CPT/HCPCS: 36415; 71046; 80048; 80076; 83735; 83880; 84484; 85025; 85610; 93005; 99285

== ENCOUNTER 2024-02-14 12:00 | Day surgery (SDC) | payer OTHER ==
[2024-02-11 16:09] LABS: Absolute Basophils 0.1 K/uL (0-0.5); Absolute Eosinophils 0.2 K/uL (0-0.5); Absolute Lymphocytes (CBC) 2.1 K/uL (0.7-4.9); Absolute Monocytes 0.6 K/uL (0.1-1.3); Absolute Neutrophil 4.8 K/uL (1.8-8.0); Basophils % 0.8 % (0-1.3); Eosinophils % 2.6 % (0-4.4); Hematocrit 41.6 % (39.6-49.0); Hemoglobin 13.6 g/dL (13.6-17.9); Lymphocytes % 27.8 % (15.3-44.8); MCH 25.4 pg (27.0-35.0); MCHC 32.6 g/dL (32.0-36.0); MCV 78.1 fL (80-100); MPV 8.8 fL (7.6-11.3); Monocytes % 7.2 % (3.3-12.3); Neutrophils % 61.6 % (41.7-73.7); Platelets 217 thou/uL (152-406); RBC Red Blood Cell Count 5.33 M/uL (4.33-5.43); Red Cell Distribution Width 14.8 % (12.1-15.2)
[2024-02-11 16:13] LABS: PT Prothrombin Time 33.5 SECONDS (9.4-12.5); PTT, Activated Partial Thromb 58.5 SECONDS (24.3-36.9); Protime INR 3.09
[2024-02-11 16:20] LABS: Anion Gap 7.6 mEq/L (5.0-15.0); Potassium 3.6 mEq/L (3.5-5.1)
--- NOTE | 2024-02-11 16:23 | RAD REPORT ---
EXAM: Chest Pa And Lat (2 Views) HISTORY: pre op pending heart cath COMPARISON: 03/11/2019 FINDINGS: LUNGS/PLEURA: The lungs are clear. No pleural effusions or pneumothorax. No pulmonary edema. MEDIASTINUM: The mediastinal silhouette is within normal limits. CARDIAC: Aortic valve prosthesis. Normal heart size. UPPER ABDOMEN: No significant abnormality. BONES: No acute fracture. Reconstruction plate overlies the central thorax. LINES/TUBES/OTHER: N/A IMPRESSION: No evidence of acute cardiopulmonary disease
--- NOTE | 2024-02-12 12:27 | EKG ---
Test Date: 2024-02-11 Test Time: 15:44:40 French Folder: KATTY MEASUREMENT RESULTS: Intervals: Rate: 60 AL: 228 QRSD: 84 QT: 418 QTc: 418 [place]: P: 74 AL: 228 QRS: 16 T: 34 INTERPRETIVE STATEMENTS: Sinus rhythm with 1st degree AV block with premature supraventricular complexes Otherwise normal ECG Compared to ECG 03/11/2019 20:30:17 Atrial premature complex(es) now present Sinus bradycardia no longer present Electronically Signed On 02-12-24 12:25:52 CDT by Robert Argueta
[2024-02-14 11:26] LABS: PT Prothrombin Time 16.2 SECONDS (9.4-12.5); Protime INR 1.46
[2024-02-14] MEDS ORDERED: NA CHLORIDE 0.9% 500 ML ONE (12:01)
[2024-02-14] MEDS ORDERED: HEPARIN 5000 UNIT/ML 1 ML VIAL ONE (15:17)
[2024-02-14] MEDS ORDERED: HEPA 1000U/500MLS 2,000 UNIT/1,000 ML BAG IV ONE (15:17)
[2024-02-14] MEDS ORDERED: LIDOCAINE 1% 20 ML MDV ONE (15:17)
[2024-02-14] MEDS ORDERED: VERAPAMIL HCL 10 MG/4 ML VIAL IV ONE (15:17)
[2024-02-14] MEDS ORDERED: FENTANYL CITR 100 MCG/2 ML ONE (15:38)
[2024-02-14] MEDS ORDERED: MIDAZOLAM HCL 2 MG/2 ML INJ ONE (15:38)
[2024-02-14 17:30] VITALS: O2SAT 100
[2024-02-14 18:11] VITALS: BP 156/75
--- NOTE | 2024-02-14 21:39 | OP ---
Date of Procedure: 02/14/2024 Surgeon: WU BRAVO Procedure Performed: Selective coronary angiogram. Indication: Chest pain with abnormal stress test. Access: Right radial artery 6-Prydeinig, closed with TR band. Complications: None. Bleeding: Less than 50 mL. Anesthesia: Total sedation time was 45 minutes. Used fentanyl and Versed. Description Of Procedure: After risks, benefits, and alternatives were explained, patient agreed to procedure and signed informed consent. The patient was brought into cardiac catheterization laborato , prepped and draped in sterile fashion. Then, I accessed right radial artery using pediatric micr opuncture kit, placed 6-Prydeinig Slender sheath and took 5-Prydeinig [place] 4.0 catheter into the aortic ro ot, engaged left main, took standard views and RCA, took standard views and removed the catheter and the sheath, placed TR band with good hemostasis. Findings: 1.Left main: Large and normal. 2.LAD: Very large and normal entirely. Normal diagonal branches. 3.Left circumflex: Large artery, normal proximal segment. OM branch has proximal 20% stenosis. Re st of the left circumflex is normal. 4.RCA: Large and dominant and normal. Conclusion: Mild nonobstructive coronary artery disease. Recommendation: Medical management. SR/MODL Voice ID: [id number] Report ID: [id number]
== END 2024-02-14 18:17 | disposition home or self-care (01) ==
LOC: CCL 12:00
PROVIDERS: ATTEND Internal Medicine
DX: I25.10 Atherosclerotic heart disease of native coronary artery without angina pectoris (principal); I65.29 Occlusion and stenosis of unspecified carotid artery; I10 Essential (primary) hypertension; Z95.2 Presence of prosthetic heart valve; Z79.01 Long term (current) use of anticoagulants; Z79.899 Other long term (current) drug therapy; Z88.8 Allergy status to other drugs, medicaments and biological substances; Z82.49 Family history of ischemic heart disease and other diseases of the circulatory system
CPT/HCPCS: 93005; 85025; 80048; 36415 ×2; 85610 ×2; 85730; 71046; 93454; 76937; C1893; Q9966; J1644; J2001; J2250; J3010; J7040; 99152; 99153